=== PATIENT | male | born 1955 | race Caucasian/White ===

== ENCOUNTER 2022-08-28 13:12 | Emergency (ER) | payer MEDICARE ==
[2022-08-28] MEDS ORDERED: diphenhydrAMINE 50 MG/ML SDV IVPUSH ONE (13:31)
[2022-08-28] MEDS ORDERED: methylPREDNISolone Sodium Succinate 125 MG/2 ML SDV IVPUSH ONE (13:31)
[2022-08-28] MEDS ORDERED: Famotidine 20 MG/2 ML SDV IVPUSH ONE (14:35)
== END 2022-08-28 15:10 | disposition home or self-care (01) ==
LOC: JP.ED 13:12
DX: T63.461A Toxic effect of venom of wasps, accidental (unintentional), initial encounter (principal); Z91.030 Bee allergy status; Z79.899 Other long term (current) drug therapy
CPT/HCPCS: 96374; 96375; 99283; J1200; J2930; J3490